=== PATIENT | male | born 1940 | race Caucasian/White ===

== ENCOUNTER 2017-12-21 21:50 | Observation (INO) | payer OTHER ==
[~2017-12-21] VITALS: Ht 172.7 cm; Wt 72.3 kg
[~2017-12-21 21:50] MED LIST: HYDROXYZINE HCL25 M2 PO; PREDNISONE20 M1 PO
--- NOTE | 2017-12-21 22:00 | ED CARDIAC/CP/PALPITATIONS ---
History of Present Illness General Chief Complaint: Chest Pain Stated Complaint: CP;SOB Source: patient, family, old records Exam Limitations: no limitations Vital Signs & Intake/Output Vital Signs & Intake/Output Vital Signs Date Time Temp Pulse Resp B/P B/P Pulse O2 O2 Flow FiO2 Mean Ox Delivery Rate 12/22 2227 99 Room Air 12/21 2226 98.0 70 20 170/68 99 Room Air 12/21 2158 97.9 67 18 186/85 98 Room Air Allergies Coded Allergies: morphine (Intermediate, HYPOTENSION & ANXIETY? 12/21/17) erythromycin base (Mild, RASH 12/21/17) penicillin V (Mild, RASH 12/21/17) Uncoded Allergies: ENDEP (Severe, MOUTH/LIP SWELLING 01/16/14) Reconcile Medications Hydroxyzine Hydrochloride (Atarax) 25 MG TABLET 1 TAB PO BID PRN ITCHINESS Prednisone 20 MG TABLET 2 TAB PO DAILY RASH Triage Nurses Notes Reviewed? yes HPI: At approximately 8 PM this evening the patient was sitting on the couch eating peanuts when he suddenly began to feel short of breath and had substernal chest pressure. There is no radiation. Patient went to lay down approximately 20 minutes later he still had the pain so thought his and eventually decided to come in for evaluation. Patient arrived to the emergency department pain free. Patient is unsure how long in total the pain actually lasted. Patient is currently asymptomatic. Patient states that when he did get up he checked his blood pressure and it was elevated. Patient does suffer from hypertension but tries to control it with diet and does not take any medications for it. At its worst the chest pain was 5 out of 10 and it is currently 0 out of 10. Past History Travel History Traveled to [place] past 21 day No Medical History Any Pertinent Medical History? see below for history Neurological: NONE EENT: NONE Cardiovascular: hypertension Respiratory: NONE Gastrointestinal: GERD Hepatic: NONE Renal: NONE Musculoskeletal: POLYMALAGIA REUMATICA CHRONIC BACK PAIN Psychiatric: NONE Endocrine: NONE Blood Disorders: NONE Cancer(s): NONE Surgical History Surgical History: non-contributory Psychosocial History Who do you live with Spouse What is your primary language Salvadorean Tobacco Use: Never used ETOH Use: denies use Illicit Drug Use: denies illicit drug use Family History Hx Contributory? No Review of Systems Review of Systems Constitutional: Reports: no symptoms. EENTM: Reports: no symptoms. Respiratory: Reports: see HPI, short of breath. Cardiovascular: Reports: see HPI, chest pain. GI: Reports: no symptoms. Genitourinary: Reports: no symptoms. Musculoskeletal: Reports: no symptoms. Skin: Reports: no symptoms. Neurological/Psychological: Reports: no symptoms. Hematologic/Endocrine: Reports: no symptoms. Immunologic/Allergic: Reports: no symptoms. All Other Systems: Reviewed and Negative Physical Exam Physical Exam General Appearance: well developed/nourished, alert, awake Head: atraumatic, normal appearance Eyes: Bilateral: PERRL, EOMI. Ears, Nose, Throat: normal pharynx, normal ENT inspection, hearing grossly normal Neck: normal inspection, supple, full range of motion Respiratory: normal breath sounds, chest non-tender, no respiratory distress, lungs clear Cardiovascular: regular rate/rhythm, normal peripheral pulses Gastrointestinal: normal bowel sounds, soft, non-tender, no organomegaly Back: normal inspection Extremities: normal inspection, normal capillary refill, normal range of motion, no edema Neurologic/Psych: no motor/sensory deficits, awake, alert, oriented x 3, normal gait, normal mood/affect Skin: intact, normal color, warm/dry Lymphatic: no anterior cervical nallely Core Measures ACS in differential dx? Yes No ASA d/t GIVEN CVA/TIA Diagnosis No Sepsis Present: No Sepsis Focused Exam Completed? No Progress Differential Diagnosis: AMI, cholecystitis, costochondritis, hyperventilation, musculoskeletal pain, myocarditis, pericarditis, pneumonia, pneumothorax, pulmonary embolism Plan of Care: Orders Procedure Date/time Status Telemetry/Dispatch Coordinator 12/21 2218 Active TROPONIN LEVEL 12/21 2158 Complete COMPREHENSIVE METABOLIC PANEL 12/21 2158 Complete CBC WITHOUT DIFFERENTIAL 12/21 2158 Complete EKG 12/21 2152 Active Laboratory Tests 12/21/17 2205: Anion Gap 10, Estimated GFR > 60, BUN/Creatinine Ratio 16.3, Glucose 115 H, Calcium 9.3, Total Bilirubin 0.8, AST 20, ALT 28, Alkaline Phosphatase 76, Troponin I 0.18 *H, Total Protein 7.5, Albumin 4.3, Globulin 3.2, Albumin/ Globulin Ratio 1.3, CBC w Diff NO MAN DIFF REQ, RBC 4.65 L, MCV 91.5, MCH 30.6, MCHC 33.4, RDW 13.8, MPV 8.3, Gran % 58.2, Lymphocytes % 24.8, Monocytes % 9.6 H, Eosinophils % 7.0 H, Basophils % 0.4, Absolute Granulocytes 5.9, Absolute Lymphocytes 2.5, Absolute Monocytes 1.0 H, Absolute Eosinophils 0.7, Absolute Basophils 0 Diagnostic Imaging: Viewed by Me: Radiology Read. Discussed w/RAD: Radiology Read. CXR Impression: PATIENT: ASHER DURAND PRESENT AGE: 77 PATIENT ACCOUNT NO: [id number] : 41 LOCATION: [facility] ORDERING PHYSICIAN: Gt Wayne MD SERVICE DATE: 12/21/17 EXAM TYPE: RAD - XRY- PORTABLE CHEST XRAY EXAMINATION: CHEST 1 VIEW CLINICAL INFORMATION: Chest pain. COMPARISON: 08/11/2007. TECHNIQUE: An AP view of the chest is provided. FINDINGS : The cardiac silhouette is not enlarged. The mediastinal and hilar contours are unremarkable. There are neither pleural effusions nor pneumothoraces. There are no consolidations. The osseous structures are unremarkable. IMPRESSION: No evidence for acute disease. DICTATED BY: Rashi Perry MD DATE/TIME DICTATED:2254 SECONDS GRADER:GEOVANNA DATE/TIME TRANSCRIBED:12/21/172254 CONFIDENTIAL, DO NOT COPY WITHOUT APPROPRIATE AUTHORIZATION. <Electronically signed in Other Vendor System> SIGNED BY: Rashi Perry MD 12/21/17 2376 Initial ED EKG: NSR, no ST T wave changes Prior EKG: unchanged Comments: D/W DR. GALARZA, PT TO BE KEPT IN TELE OBS. HE WILL CONSULT. Departure Departure Disposition: STILL A PATIENT Condition: Stable Clinical Impression Primary Impression: Chest pain Referrals: Cosme IRELAND,Abhishek (PCP/Family) Departure Forms: Customer Survey General Discharge Information Observation Note Spoke With: Erika Brink MD Physician Advisor Notified: GT WAYNE MD Place Patient In: Non-ED OBS Care Area Rationale for Observation: My rational for observation is as follows [telemetry monitoring, serial enzymes, cardiology consultation, heparin if chest pain comes back.]. Critical Care Note Critical Care Note Critical Care Time: non-applicable
[2017-12-21 22:30] LABS: ABSOLUTE BASOPHIL COUNT 0 /CUMM (0.0-0.2); ABSOLUTE EOSINOPHIL COUNT 0.7 /CUMM (0.0-0.7); ABSOLUTE GRANULOCYTE CT 5.9 /CUMM (1.4-6.5); ABSOLUTE LYMPH COUNT 2.5 /CUMM (1.2-3.4); BASOPHIL % 0.4 % (0.0-2.0); GRANULOCYTE % 58.2 % (42.2-75.2); HEMATOCRIT 42.5 % (42-52); MEAN CORPUSCULAR HGB 30.6 PG (27.0-31.0); MEAN CORPUSCULAR HGB CONC 33.4 G/DL (33.0-37.0); MEAN CORPUSCULAR VOLUME 91.5 FL (80.0-94.0); MEAN PLATELET VOLUME 8.3 FL (7.4-10.4); PLATELET COUNT 322 /CUMM (130-400); RBC DISTRIBUTION WIDTH 13.8 % (11.5-14.5); RED BLOOD CELL CT 4.65 /CUMM (4.70-6.10); WHITE BLOOD CELL COUNT 10.2 /CUMM (4.8-10.8)
--- NOTE | 2017-12-21 23:01 | RADIOLOGY REPORT ---
EXAMINATION: CHEST 1 VIEW CLINICAL INFORMATION: Chest pain. COMPARISON: 08/11/2007. TECHNIQUE: An AP view of the chest is provided. FINDINGS: The cardiac silhouette is not enlarged. The mediastinal and hilar contours are unremarkable. There are neither pleural effusions nor pneumothoraces. There are no consolidations. The osseous structures are unremarkable. IMPRESSION: No evidence for acute disease.
--- NOTE | 2017-12-21 23:48 | History & Physical ---
Greg Barboza MD 12/21/17 6356: General Information and HPI MD Statement: I have seen and personally examined ASHER DURAND and documented this H&P. The patient is a 77 year old M who presented with a patient stated chief complaint of chest pain. Source of Information: patient, old records Exam Limitations: poor historian History of Present Illness: 77 year old male with past medical history significant for hypertension, hypothyroidism, hyperlipidemia, diabetes, polymyalgia rheumatica, and GERD presented with acute onset chest pain. The patient states that he was in his usual state of health, sitting at home, when he suddenly developed frontal chest pain. The pain was 2/10 in severity, and described it as a pressure like sensation. He thinks it was radiating towards his back near his neck although he says he has chronic neck pain, he thinks they were one pain originating in the chest. The patient's chest pain was reportedly associated with palpitations and shortness of breath. The episode of chest pain was transient last only a few minutes. He did not endorse that it was aggravated by eating, position, or exertion. It was not pleuritic in nature nor tender to palpation. The patient has trouble describing how he felt unwell besides chest pain with palpitations and dyspnea. He says he decided to lay otf to rest. His checked his blood pressures several times over the next hour which was labile but persistently elevated and insisted on bringing him into the emergency department for evaluation. The patient states he never has had chest pain like this before. He states his exercise capacity is limited by dyspnea, doesn't climb stairs nor walk for prolonged periods and largely is sedentary but denies ever experiencing exertional chest pain. He was previously evaluated by Dr. Elaine in 2009 for chest pain. 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 Avendano in [place] according to Dr. Elaine note in 2009 who recommended a stress test but patient can not recall having this performed. In the ED, his first troponin was positive although his EKG did not show any acute ischemic changes and his chest pain had resolved prior to arrival. He was given 325mg of aspirin and admitted to telemetry for further evaluation and treatment. Allergies/Medications Compliance With Home Meds: GOOD Past History Travel History Traveled to [place] past 21 day No Medical History Neurological: NONE EENT: NONE Cardiovascular: hypertension Respiratory: NONE Gastrointestinal: GERD Hepatic: NONE Renal: NONE Musculoskeletal: POLYMALAGIA REUMATICA CHRONIC BACK PAIN Psychiatric: NONE Endocrine: NONE Blood Disorders: NONE Cancer(s): NONE Surgical History Surgical History: hernia repair-inguinal Past Family/Social History Family History Relations & Conditions if any FATHER FH: myocardial infarction, Onset: 60+. MOTHER FH: hypertension SISTER FH: myocardial infarction FH: stroke Psychosocial History Smoking Status: Never Smoked ETOH Use: denies use Illicit Drug Use: denies illicit drug use Functional Ability ADLs Independent: dressing, eating, toileting, bathing. Ambulation: independent Review of Systems Review of Systems Constitutional: Denies: chills, diaphoresis, fever, malaise, weakness. EENTM: Reports: no symptoms. Cardiovascular: Reports: chest pain, palpitations. Denies: peripheral edema, syncope. Respiratory: Reports: short of breath. Denies: cough, hemoptysis, orthopnea, sputum production. GI: Reports: no symptoms. Genitourinary: Reports: no symptoms. Musculoskeletal: Reports: back pain, neck pain. Skin: Reports: no symptoms. Neurological/Psychological: Reports: no symptoms. Hematologic/Endocrine: Reports: no symptoms. Exam & Diagnostic Data Last 24 Hrs of Vital Signs/I&O Vital Signs Date Time Temp Pulse Resp B/P B/P Pulse O2 O2 Flow FiO2 Mean Ox Delivery Rate 12/22 2227 99 Room Air 12/21 2226 98.0 70 20 170/68 99 Room Air 12/21 2159 97.9 67 18 186/85 98 Room Air Intake & Output 12/22 0800 04/ 0000 12/21 1600 Intake Total Output Total Balance Patient 90.804 kg 88.451 kg Weight Weight Bed scale Measurement Method Physical Exam General Appearance Alert, Oriented X3, Cooperative, No Acute Distress Neck Supple, No JVD Cardiovascular Regular Rate, Normal S1, Normal S2, systolic murmur 1/6 Lungs left basilar crackles Abdomen Normal Bowel Sounds, Soft, No Tenderness, No Masses Extremities No Clubbing, No Cyanosis, Normal Pulses, trace LE edema Last 24 Hrs of Labs/Carlos: Laboratory Tests 12/21/175: Anion Gap 10, Estimated GFR > 60, BUN/Creatinine Ratio 16.3, Glucose 115 H, Hemoglobin A1c Pending, Calcium 9.3, Total Bilirubin 0.8, AST 20, ALT 28, Alkaline Phosphatase 76, Troponin I 0.18 *H, Total Protein 7.5, Albumin 4.3, Globulin 3.2, Albumin/Globulin Ratio 1.3, TSH Pending, CBC w Diff NO MAN DIFF REQ, RBC 4.65 L, MCV 91.5, MCH 30.6, MCHC 33.4, RDW 13.8, MPV 8.3, Gran % 58.2, Lymphocytes % 24.8, Monocytes % 9.6 H, Eosinophils % 7.0 H, Basophils % 0.4, Absolute Granulocytes 5.9, Absolute Lymphocytes 2.5, Absolute Monocytes 1.0 H, Absolute Eosinophils 0.7, Absolute Basophils 0 Diagnostic Data EKG Results sinus rhythm HR [address] segment changes CXR Results The cardiac silhouette is not enlarged. The mediastinal and hilar contours are unremarkable. There are neither pleural effusions nor pneumothoraces. There are no consolidations. The osseous structures are unremarkable. Other Results echo 2008 minimal aortic sclerosis, no AR/, minimal dilation of aortic root, thickened MV, borderline posterior leaflet systolic prolapse, mild MR, mild left atrial dilatation, physiological left ventricular false tendons were present, mild lipomatous atrial septal hypertrophy, normal right heart chamber size, moderate TR without pulmonary hypertension, mild pulmonic insufficiency CHEST CTA Ascending aorta dilatation measuring 4.3 cm. No aortic dissection. No acute change of the chest. Assessment/Plan Assessment: 77 year old male with past medical history significant for hypertension, hypothyroidism, hyperlipidemia, diabetes, polymyalgia rheumatica, and GERD presented with acute onset chest pain. Chest pain: Atypical, non exertional, radiating towards the back, aortic root dilatation on old echo CTA chest negative for aortic dissection First troponin elevated to 0.18 Likely Type II NSTEMI, with no significant ischemic EKG changes Serial troponins and EKGs to evaluate for myocardial ischemia Monitor on telemetry for arrhythmia Cardiology consultation with Dr. Elaine Will probably need an outpatient stress test Start aspirin and statin therapy Initiate low dose beta clinton with metoprolol or carvedilol ECHO 2008 LVEF wnl, no AR/, minimal dilation of aortic root, thickened MV with mild MR, mild left atrial dilatation, normal right heart chamber size, moderate TR without pulmonary hypertension, mild pulmonic insufficiency HTN: Not on medications at home Start beta clinton HLD: Check lipid panel Start statin therapy History of hypothyroidism: Stopped synthroid on his own TSH was normal in 2013 Repeat TSH DM: Check hemoglobin A1C If elevated, started accuchecks and short acting insulin and change to diabetic diet Heart healthy diet DVT ppx-lovenox 40mg subcutaneous daily Full code As Ranked By This Provider Problem List: 1. Chest pain Core Measures/Misc (06/07) Acute Coronary Syndrome ACS Diagnosis: No Congestive Heart Failure Congestive Heart Failure Diagnosis No Cerebrovascular Accident CVA/TIA Diagnosis: No VTE (View Protocol) VTE Risk Factors Age>40 No Mechanical VTE Prophylaxis d/t N/A MechProphylax Ordered No VTE Pharm Prophylaxis d/t NA PharmProphylax ordered Sepsis (View protocol) Sepsis Present: No Danilo IRELAND,Ismail 12/22/17 0219: General Information and HPI Allergies/Medications Allergies: Coded Allergies: amitriptyline (Severe, ENDEP-> MOUTH/LIP SWELLING 12/22/17) morphine (Intermediate, HYPOTENSION & ANXIETY? 12/21/17) erythromycin base (Mild, RASH 12/21/17) penicillin V (Mild, RASH 12/21/17) Resident Review Statement Resident Statement: examined this patient, discussed with corporate communications intern, agreed with corporate communications intern, discussed with family, discussed with nursing Other Findings: 77-year-old male with a past medical history significant for diabetes mellitus, hypothyroidism, hypertension, hyperlipidemia, polymyalgia rheumatica, and GERD who presented with a chief complaint of chest pain. The patient reported 2/10, pressure-like, bilateral ulnar chest pain that lasted for few minutes. Pain was radiated to the base of the neck posteriorly, although he said he has a chronic neck pain. His pain was associated with dyspnea and palpitation and was not affected by breathing, change in position, or touch. 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 Patient stopped all his medication a while ago and is only self-medicating with natural supplements. On admission: BP 186/85, HR 67, Temp 98, and saturating 99 on room air. Vitals were Significant labs: Glucose 1:15 and troponin 0.18. X-ray showed no evidence of acute disease, personally reviewed x-ray showed trachea deviated to the right side and widening mediastinum. CTA Ascending aorta dilatation measuring 4.3 cm. No aortic dissection. No acute change of the chest. Physical Exam HEENT - PERRLA, EOMI CVS - Nl S1,S2 w/o m/g/r RESP - CTA BL with mild crackles in the left lower lobe GI - Soft, NT/ND without organomegaly Extremities-No edema or cyanosis Assessment: 77-year-old male with a history of hypertension, hyperlipidemia, hypothyroidism, and diabetes, however he is not currently taking any medication and only self- medicating with natural supplements. On admission he was found to have mildly elevated troponin and hypertension. #NSTENI * Monitor in telemetry * Serial troponin and EKG * Echocardiogram * We will start aspirin, statin, low-dose metoprolol * Cardiology consult #HTN,HDL,DM, hypothyroidism not currently in any medication * Diabetic diet * Fingerstick glucose level * Insulin SS * Hemoglobin A1c * TSH -Diabetic diet -DVT prophylaxis with subcutaneous heparin -Full code KeenaJuanitanoemy 12/22/17 0429: Attending MD Review Statement Attending Statement Attending MD Statement: examined this patient, discuss w/resident/PA/BEAM DYER, agreed w/resident/PA/BEAM DYER, reviewed EMR data (avail), reviewed images, amended to note Attending Assessment/Plan: CC: Chest pain PMH: DM, HTN, hypothyroidism : Noncompliant with medications Patient came to ER for chest pressure that started 8 PM at rest, pressure-like, all over the chest, nonradiating, associated with shortness of breath and palpitations, lasted for a few minutes and then resolved on its own but he kept feeling uneasy for more than an hour. His checked his blood pressure every 15 minutes and it was persistently high so she insisted that he should go to ER. Patient had similar episode of chest pain 10 years back when he was admitted in this hospital and was diagnosed to have diabetes, hypertension, hypothyroidism but patient has been noncompliant with any of his medications. Even though he sees primary care physician every now and then he refuses to take any medications. He believes that he gets side effects from all this medication and blood pressure medication will do more harm then benefit. Vitals: Afebrile, pulse 70, RR 18, blood pressure 186/85, saturating 98% on room air. On exam: A O 3, cooperative, no acute distress, neck supple, JVD normal, no lymphadenopathy, mucosa moist, no focal neurological deficit, no dependent edema , no obvious skin rashes or inflammation CVS: S1-S2, RRR, ?2/6 diastolic murmur in aortic area. RS: Clear to auscultate bilaterally. Abdomen: Soft, obese, NT, ND, bowel sounds present. CXR: No evidence for acute disease. CTA chest: Ascending aorta dilatation measuring 4.3 cm. No aortic dissection. No acute change of the chest. Assessment and plan 77-year-old male with past medical history significant for HTN, DM, hypothyroidism, noncompliant with medication presented in ER for a brief episode of chest pain for a few minutes followed by feeling uneasy for 1 hour. He check blood pressure at home which was elevated. His insisted to come to ER. Patient states that he does not believe in taking any medications and has been all right since last many years of not taking medications. Chest pain was all over the chest, nonradiating, occurred at rest, relieved without treatment. Patient has 2/6 diastolic murmur in aortic area, otherwise exam unremarkable. ECG showed normal sinus rhythm but troponin is elevated to 0.18. Previous record mentions that he has dilatation of aortic root. In the setting of diastolic murmur, atypical chest pain, and history of aortic root dilatation CTA was obtained which was unremarkable for dsection. Patient has accelerated blood pressure, and would benefit from observation on telemetry to rule out ACS. Patient states that even after discharge he is not going to take any medications as he does not believe in medications. According to him medications has more side effects than benefits. + Chest pain with elevated troponin: NSTEMI. NO ecg changes. currently pain free. + Accelerated HTN : non compliance + History of DM, hypothyroidism: noncompliant with treatment - Place in observation on telemetry - Continuous telemetry monitoring - Serial troponin and EKGs - 2-D echo in a.m. - Cardiology consult in a.m. - Continue aspirin, atorvastatin, low-dose beta clinton - Start heparin drip if troponin trending up - HbA1c, TSH - Accu-Cheks, sliding scale insulin
--- NOTE | 2017-12-22 02:29 | CT SCAN REPORT ---
EXAMINATION: CT ANGIOGRAM CHEST, AORTIC STUDY. CLINICAL INFORMATION: Chest pain. The pain radiates to the back. Concern for aortic dissection. COMPARISON: Portable chest December 21, 2017 TECHNIQUE: A noncontrast axial images obtained through chest. A noncontrast localizer was performed, followed by the administration of 94 mL Optiray [address] of the chest was then performed. Coronal and sagittal reformatted were completed at the CT scanner and reviewed on the PACS workstation. No adverse effects were reported. No 3-D imaging performed. Axial MIP reformatted sequence was performed at the CT scanner. DLP: 703.49 mGy-cm. FINDINGS: VASCULAR: The ascending aorta is dilated, measuring 4.3 cm transverse. The aortic arch measures 3.2 cm transverse. The descending aorta at the aortic hiatus measures 2.6 cm. There is no aortic dissection. There are a few vascular wall calcifications of the aortic wall at the arch and descending aorta. There is coronary artery calcifications present. There is normal variant of a 2 vessel aortic arch. There is normal enhancement of the great vessels. There is good enhancement also of the pulmonary arteries with no evidence of pulmonary embolism MEDIASTINUM: No mediastinal mass. No lymphadenopathy. No fluid collection or hematoma. LUNGS: There are a couple small lung cysts at the right lung base which are thin-walled. There is a thin-walled lung cyst also adjacent to the left hilum the left upper lobe. No acute abnormality. There is no infiltrate. No interstitial or reticular opacity. There is no bronchiectasis. The central bronchial airways are open. FLUID: There is no pericardial effusion. There is no pleural effusion. AXILLA: No significant lymphadenopathy. UPPER ABDOMEN: Adrenal glands normal. Visualized portions of liver and spleen unremarkable. SKELETAL: No suspicious focal bone finding. IMPRESSION: Ascending aorta dilatation measuring 4.3 cm. No aortic dissection. No acute change of the chest.
[2017-12-22 02:30] VITALS: BP 152/88
[2017-12-22 06:49] VITALS: BP 144/82
--- NOTE | 2017-12-22 07:21 | PN-Observation ---
Juan Jose Thornton MD,[facility] 12/22/17 0721: Observation Note Observation Note _ I have personally examined ASHER DURAND. him disposition is uncertain at this time. Before a determination can be made, he requires continued observation for the following reasons [chest pain rule out ACS]. Assessment/Plan Medical Assessment: 77-year-old male with past medical history significant for hypertension, hypothyroidism, loa-gnibsqa-tpdtzujib diabetes mellitus, hyperlipidemia, polymyalgia rheumatica, noncompliant with medications and GERD presented with acute onset chest pain. Patient describes chest pain is pressure-like sensation, radiating to back near his neck, 2/10 in intensity, associated with shortness of breath and palpitations. Patient was also seen in 2008 for chest pain and was recommended to have a stress test. Patient does not remember having the stress test done. Patient also has history of uncontrolled blood pressures at home. On examination noted to have diastolic murmur. EKG on admission showed normal sinus rhythm with a positive troponin of 0.18. He also has history of aortic root dilatation. CTA was obtained to rule out dissection. Overnight patient remained chest pain-free. Telemetry monitoring showed no significant arrythmias Chest pain rule out ACS Patient's presentation is typical for an anginal attack. Likelihood of having any any acute coronary event is low to moderate based on no CAD at baseline, but on examination patient does have diastolic murmur which puts him at a high risk, no signs of congestive heart failure, no acute EKG changes, and positive troponins trending down. Heart score, 6 points Moderate Score (4-6 points) Risk of MACE of 12-16.6%. MIGUEL score 3 points, 13% risk at 14 days of: all- cause mortality, new or recurrent [place], or severe recurrent ischemia requiring urgent revascularization. - Hemodynamically stable - Admit to telemetry - Vitals q Shift - Watch for arrhythmias on telemetry floor, Including ventricle tachycardia and blocks - Cardio consult - Consider repeat ECHO - Lipid panel added onto the morning labs - ASA 81mg daily - No history of cocaine use as a young adult - Continue Sublingual nitrates, B-clinton, statins and ASA - IV heparin - Give dinner (Heart Healthy Diet Hypothyroidism Patient has past medical history significant for hypothyroidism and currently not compliant with medications. High TSH noted. We will staff counselor the patient and start him on appropriate medications. Ascending aorta dilatation Ascending aorta dilatation measuring 4.3 cm. Non-smoker, will require regular follow up Patient is on heart healthy diet Patient is on pain management Patient is on subcutaneous heparin for DVT prophylaxis Problem List: 1. Chest pain DVT/Prophylaxis: pharmacological Consulting Request: Consulting Specialty: Cardiology Subjective Follow-up For: Chest pain rule out ACS Subjective: Patient demand afebrile overnight. No episodes of tachycardia or tachypnea. Systolic blood pressure has improved from 186-144 and diastolic in 80s. Oxygen saturation of 98% to 99% on room air. Review of Systems Constitutional: Denies: chills, fever. Cardiovascular: Denies: chest pain, palpitations. Respiratory: Denies: cough, short of breath. Gastrointestinal: Denies: abdominal pain, nausea, vomiting. Genitourinary: Denies: dysuria. Objective Last 24 Hrs of Vital Signs/I&O Vital Signs Date Time Temp Pulse Resp B/P B/P Pulse O2 O2 Flow FiO2 Mean Ox Delivery Rate 12/22 0649 98.1 66 20 144/82 98 Room Air 12/22 0230 98.2 66 20 152/88 98 Room Air 12/21 2228 99 Room Air 12/21 2227 98.0 70 20 170/68 99 Room Air 12/21 2159 97.9 67 18 186/85 98 Room Air Intake & Output 12/22 1600 12/22 0800 12/22 0000 Intake Total 240 Output Total Balance 240 Intake, Oral 240 Patient 200 lb 195 lb Weight Weight Bed scale Measurement Method Physical Exam General Appearance: Alert, Oriented X3, Cooperative, No Acute Distress Skin: No Rashes HEENT: Atraumatic Neck: No JVD Cardiovascular: Regular Rate, Normal S1, Normal S2, diastolic murmur in aortic area Lungs: Clear to Auscultation, Normal Air Movement Abdomen: Normal Bowel Sounds, Soft, No Tenderness Extremities: No Edema Vascular: Normal Pulses Current Medications: Current Medications Sig/Pauline Start time Last Medication Dose Route Stop Time Status Admin Aspirin 81 MG DAILY 12/22 1000 AC PO Aspirin 0 .STK-MED ONE 12/210 DC PO Aspirin 325 MG ONCE ONE 12/210 DC 12/21 PO 12/21 223 2236 Atorvastatin Calcium 80 MG 1700 12/22 1700 AC PO Heparin Sodium 5,000 UNIT Q8 12/22 0600 AC 12/22 (Porcine) SC 0535 Metoprolol Tartrate 25 MG BID 12/22 1000 AC PO Last 24 Hrs of Labs/Mics: Laboratory Tests 12/22/17 0420: Troponin I 0.15 *H 12/22/17 0420: Anion Gap 11, Estimated GFR > 60, BUN/Creatinine Ratio 18.6, Triglycerides Pending, Cholesterol Pending, LDL Cholesterol, Calc Pending, HDL Cholesterol Pending, Cholesterol/HDL Ratio Pending 12/21/17 2205: Anion Gap 10, Estimated GFR > 60, BUN/Creatinine Ratio 16.3, Glucose 115 H, Hemoglobin A1c Pending, Calcium 9.3, Total Bilirubin 0.8, AST 20, ALT 28, Alkaline Phosphatase 76, Troponin I 0.18 *H, Total Protein 7.5, Albumin 4.3, Globulin 3.2, Albumin/Globulin Ratio 1.3, TSH 8.050 H, Free T4 1.05, Total T3 1.29, CBC w Diff NO MAN DIFF REQ, RBC 4.65 L, MCV 91.5, MCH 30.6, MCHC 33.4, RDW 13.8, MPV 8.3, Gran % 58.2, Lymphocytes % 24.8, Monocytes % 9.6 H, Eosinophils % 7.0 H, Basophils % 0.4, Absolute Granulocytes 5.9, Absolute Lymphocytes 2.5, Absolute Monocytes 1.0 H, Absolute Eosinophils 0.7, Absolute Basophils 0 Ric Drew 12/22/17 1043: Attending Addendum Attending Brief Note 77 o/m with chest pain in high risk patient with elevated cardiac enzymes. No fever, headaches. Patient started on asa/statin/b clinton/ nitrates prn and consult cardiology. Start anticoaogualtion and f/u cardiology. Plan for cardiac cath as per cardiology. RISS and titrate insulin as needed. Gi/dvt prophyalxis full code.
[2017-12-22 10:43] VITALS: BP 160/88
[2017-12-22 14:30] VITALS: BP 128/82
--- NOTE | 2017-12-22 16:56 | Discharge Summary ---
Visit Information Visit Dates Admission Date: 12/21/17 Discharge Date: 12/23/17 Hospital Course Course Attending Physician: Ric Drew MD Primary Care Physician: Cosme IRELAND,Abhishek Consulting Request: Consulting Specialty: Cardiology Hospital Course: 77-year-old male with past medical history significant for hypertension, hypothyroidism, xes-fcbuzbf-qwzypaozu diabetes mellitus, hyperlipidemia, polymyalgia rheumatica, noncompliant with medications and GERD presented with acute onset chest pain. Patient describes chest pain is pressure-like sensation, radiating to back near his neck, 2/10 in intensity, associated with shortness of breath and palpitations. Patient was also seen in 2008 for chest pain and was recommended to have a stress test. Patient does not remember having the stress test done. Patient also has history of uncontrolled blood pressures at home. On examination noted to have diastolic murmur. EKG on admission showed normal sinus rhythm with a positive troponin of 0.18. He also has history of aortic root dilatation. CTA was obtained to rule out dissection. Overnight patient remained chest pain-free. Telemetry monitoring showed no significant arrythmias Chest pain rule out ACS Patient's presentation was typical for an anginal attack. Likelihood of having any any acute coronary event was low to moderate based on no CAD at baseline, but on examination patient did have diastolic murmur which puts him at a higher risk, no signs of congestive heart failure, no acute EKG changes, and positive troponins trending down. Heart score, 6 points Moderate Score (4-6 points). Risk of MACE of 12-16.6%. MIGUEL score 3 points, 13% risk at 14 days of: all- cause mortality, new or recurrent [place], or severe recurrent ischemia requiring urgent revascularization. Watch for arrhythmias on telemetry floor, Including ventricle tachycardia and blocks. Cardio consult was obtained. ECHO was obtained. Echo showed jection fraction is greater than 55-60%. There appears to be focal hypokinesia of the mid interventricular septum. A false tendon and increased muscular trabecularity are present at the left ventricular apex.No prior study was available for comparison. Lipid panel showed 135 LDL. ASA 81mg daily, statin and beta-clinton was given. Patient had no history of cocaine use as a young adult. Hypothyroidism Patient has past medical history significant for hypothyroidism and currently not compliant with medications. High TSH noted. Patient was counseled to follow up with primary care doctor for hypothyroidism after cardiac catheterization. Ascending aorta dilatation Ascending aorta dilatation measuring 4.3 cm. No evidence of dissection on CT scan. Non-smoker, will require regular follow up with cardiology. Patient is on heart healthy diet Patient is on pain management Patient is on subcutaneous heparin for DVT prophylaxis Allergies: Coded Allergies: amitriptyline (Severe, ENDEP-> MOUTH/LIP SWELLING 12/22/17) morphine (Intermediate, HYPOTENSION & ANXIETY? 12/21/17) erythromycin base (Mild, RASH 12/21/17) penicillin V (Mild, RASH 12/21/17) Disposition Summary Disposition Principal Diagnosis: Chest pain rule out ACS Hypothyroidism Ascending aorta dilatation Additional Diagnosis: Hypertension Pre-diabetes Hyperlipidemia Polymyalgia rheumatica Discharge Disposition: other general hospital Discharge Instructions General Discharge Information Code Status: Full Code Patient's Diet: Heart Healthy Diet Patient's Activity: As Tolerated Follow-Up Instructions/Appts: Follow up with PCP after discharge Follow up with Balance Assembler after discharge Medications at Discharge Discharge Medications: Stop taking the following medications: Hydroxyzine Hydrochloride (Atarax) 25 MG TABLET ORAL TWICE DAILY as needed for ITCHINESS Qty = 20 Prednisone (Prednisone) 20 MG TABLET ORAL DAILY Qty = 6 Start taking the following new medications: Atorvastatin Calcium (Atorvastatin Calcium) 80 MG TABLET 80 Milligram ORAL 5 PM Qty = 90 No Refills Comments: Last Taken: 12/22/17 Time: 6:30 PM Metoprolol Tartrate (Metoprolol Tartrate) 25 MG TABLET 25 Milligram ORAL TWICE DAILY Qty = 120 No Refills Comments: Last Taken: 12/23/17 Time: 9:00 AM Aspirin (Aspirin*) 81 MG TAB.CHEW 81 Milligram ORAL DAILY Qty = 90 No Refills Comments: Last Taken: 12/23/17 Time: 9:00 AM Copies To: Cosme IRELAND,Abhishek Attending MD Review Statement Documenting Attending: Ric Drew MD
--- NOTE | 2017-12-22 17:07 | Patient Discharge Instructions ---
Discharge Instructions General Discharge Information You were seen/treated for: NSTEMI CP R/O ACS Special Instructions: Follow up with Cycle Manager after discharge Follow up with PCP after discharge Diet Continue normal diet: Yes Recommended Diet: Heart Healthy Activity Full Activity/No Limits: Yes Acute Coronary Syndrome Inclusion Criteria At DC or during hospital stay patient has or had the following: ACS DIAGNOSIS Yes Discharge Core Measures Meds if any: Prescribed or Continued at Discharge Aspirin Yes Beta-Juliann Yes Statin Yes Meds if any: NOT Prescribed or Continued at Discharge Congestive Heart Failure Inclusion Criteria At DC or during hospital stay patient has or had the following: CHF DIAGNOSIS No Discharge Core Measures Meds if any: Prescribed or Continued at Discharge Meds if any: NOT Prescribed or Continued at Discharge Cerebrovascular accident Inclusion Criteria At DC or during hospital stay patient has or had the following: CVA/TIA Diagnosis No Discharge Core Measures Meds if any: Prescribed or Continued at Discharge Meds if any: NOT Prescribed or Continued at Discharge Venous thromboembolism Inclusion Criteria VTE Diagnosis No VTE Type NONE VTE Confirmed by (Test) NONE Discharge Core Measures - Per Current guidelines, there needs to be overlap - treatment for the first 5 days of Warfarin therapy. - If discharged on Warfarin prior to 5 days of - overlap therapy, the patient will need to be - assessed for post discharge needs including - *Post discharge parental anticoagulation - *Warfarin and/or parental anticoagulation education - *Follow up date to check INR post discharge At least 5 days overlap therapy as Inpatient No Meds if any: Prescribed or Continued at Discharge Note: Overlap Therapy is Warfarin and Anticoagulant Meds if any: NOT Prescribed or Continued at Discharge
[2017-12-22] MEDS ORDERED: ATORVASTATIN CA80 M1 PO (17:10)
[2017-12-22] MEDS ORDERED: METOPROLOL TART25 M1 PO (17:10)
[2017-12-22] MEDS ORDERED: ASPIRIN81 M4 PO (17:10)
--- NOTE | 2017-12-22 19:54 | ECHOCARDIOGRAM REPORT ---
ASHER DURAND Age: 77 : 1940 Gender: M Exam Date: 12/22/2017 11:04 Exam Location: [address] Ht (in): 68 Wt (lb): 200 BSA: 2.11 BP: 144 / 82 Ordering Physician: Almaz Carrasco MD Referring Physician: Almaz Carrasco MD Technologist: Jamison Niño [facility] Room Number: 174-1 Indications: Chest Pain Rhythm: Sinus Technical Quality: Fair FINDINGS Left Ventricle Normal size left ventricle. Normal left ventricular ejection fraction estimated at 55-60%. Hypokinetic septum. Right Ventricle Normal right ventricular size and function. Right Atrium Normal right atrial size. Left Atrium Mild left atrial dilatation. Mitral Valve Mitral valve thickened. Trace to mild mitral regurgitation. Aortic Valve Trileaflet aortic valve. Diffuse thickening (sclerosis) of the aortic valve cusps without reduced excursion. No aortic stenosis. Trace aortic regurgitation. Tricuspid Valve Tricuspid valve not well visualized, grossly normal. Trace to mild tricuspid regurgitation. Pulmonic Valve Structurally normal pulmonic valve. Trace to mild pulmonic regurgitation. Pericardium No pericardial effusion. Great Vessels Mildly dilated proximal ascending aorta (tube). CONCLUSIONS 1. This was a technically difficult study 2. Mild aortic sclerosis is present with trivial aortic insufficiency and mild enlargement of the descending aorta 3. mitral leaflet thickening is present with minimal mitral insufficiency and mild left atrial enlargement. 4. There is no sitting up in pericardial fluid detected on this study 5. The left ventricular chamber size is normal. The ejection fraction is greater than 55-60%. There appears to be focal hypokinesia of the mid interventricular septum 6. Right heart structures are grossly normal. Minimal to mild tricuspid and pulmonic insufficiency are present with no evidence of pulmonary hypertension. 7. No prior study was available for comparison. 8. A false tendon and increased muscular trabecularity are present at the left ventricular apex Rudolph Elaine M.D. (Electronically Signed) Final Date: 22 December 2017 19:53 MEASUREMENTS (Male / Female) Normal Values 2D ECHO LV Diastolic Diameter PLAX 4.4 cm 4.2 - 5.9 / 3.9 - 5.3 cm LV Systolic Diameter PLAX 2.4 cm 2.1 - 4.0 cm LV Fractional Shortening PLAX 45.5 % 25 - 46 % LV Ejection Fraction 2D Teich 77.0 % IVS Diastolic Thickness 1.1 cm LVPW Diastolic Thickness 1.0 cm LV Relative Wall Thickness 0.5 RV Internal Dim ED PLAX 3.3 cm 1.9 - 3.8 cm LVOT Diameter 2.0 cm Aortic Root Diameter 3.5 cm LA Systolic Diameter LX 4.0 cm 3.0 - 4.0 / 2.7 - 3.8 cm LA Volume 35.0 cm 18 - 58 / 22 - 52 cm Ascending Aorta Diameter 4.0 cm DOPPLER AV Peak Velocity 146.0 cm/s AV Peak Gradient 8.5 mmHg AV Mean Velocity 106.0 cm/s AV Mean Gradient 5.0 mmHg AV Velocity Time Integral 33.5 cm LVOT Peak Velocity 99.3 cm/s LVOT Peak Gradient 3.9 mmHg LVOT Mean Velocity 63.8 cm/s LVOT Mean Gradient 2.0 mmHg LVOT Velocity Time Integral 24.1 cm LVOT Stroke Volume 75.7 cm AV Area Cont Eq vti 2.3 cm AV Area Cont Eq pk 2.1 cm MV Peak Velocity 117.0 cm/s MV Peak Gradient 5.5 mmHg MV Mean Velocity 60.9 cm/s MV Mean Gradient 2.0 mmHg Mitral E Point Velocity 74.0 cm/s Mitral A Point Velocity 89.3 cm/s Mitral E to A Ratio 0.8 MV PHT Velocity 84.2 cm/s MV Deceleration [place] 220.0 cm/s MV Pressure Half Time 114.8 ms MV Area PHT 1.9 cm MV Deceleration Time 232.0 ms TR Peak Velocity 240.0 cm/s TR Peak Gradient 23.0 mmHg Right Atrial Pressure 10.0 mmHg Pulmonary Artery Systolic Pressu 33.0 mmHg Right Ventricular Systolic Press 33.0 mmHg PV Peak Velocity 85.5 cm/s PV Peak Gradient 2.9 mmHg PV Mean Velocity 59.5 cm/s PV Mean Gradient 2.0 mmHg PV Velocity Time Integral 21.1 cm
[2017-12-22 23:50] VITALS: BP 142/76
[2017-12-23 06:36] VITALS: BP 118/70
--- NOTE | 2017-12-23 07:39 | PN-Observation ---
Juan Jose Thornton MD,[facility] 12/23/17 0739: Observation Note Observation Note _ I have personally examined ASHER DURAND. him disposition is uncertain at this time. Before a determination can be made, he requires continued observation for the following reasons [CP R/O ACS]. Assessment/Plan Medical Assessment: 77-year-old male with past medical history significant for hypertension, hypothyroidism, xzw-pfsywyn-qcsnvdnxf diabetes mellitus, hyperlipidemia, polymyalgia rheumatica, noncompliant with medications and GERD presented with acute onset chest pain. Patient describes chest pain is pressure-like sensation, radiating to back near his neck, 2/10 in intensity, associated with shortness of breath and palpitations. Patient was also seen in 2008 for chest pain and was recommended to have a stress test. Patient does not remember having the stress test done. Patient also has history of uncontrolled blood pressures at home. On examination noted to have diastolic murmur. EKG on admission showed normal sinus rhythm with a positive troponin of 0.18. He also has history of aortic root dilatation. CTA was obtained to rule out dissection. Overnight patient remained chest pain-free. Telemetry monitoring showed no significant arrythmias, some evidence of sinus bradycardia with the lowest heart rate of 47. Chest pain rule out ACS/NSTEMI Patient's presentation is typical for an anginal attack. Likelihood of having any any acute coronary event is low to moderate based on no CAD at baseline, but on examination patient does have diastolic murmur which puts him at a high risk, no signs of congestive heart failure, no acute EKG changes, and positive troponins trending down. Heart score, 6 points Moderate Score (4-6 points) Risk of MACE of 12-16.6%. MIGUEL score 3 points, 13% risk at 14 days of: all- cause mortality, new or recurrent [place], or severe recurrent ischemia requiring urgent revascularization. Patient will be transferred to [facility] for cardiac catheterization today. - Hemodynamically stable - Admit to telemetry - Vitals q Shift - Watch for arrhythmias on telemetry floor, Including ventricle tachycardia and blocks - Cardio consult - ECHO results pending - Lipid panel showed LDL of 135, rest of the profile is normal - ASA 81mg daily - No history of cocaine use as a young adult - Continue Sublingual nitrates as needed, B-clinton, statins and ASA scheduled Hypothyroidism Patient has past medical history significant for hypothyroidism and currently not compliant with medications. High TSH noted. Patient was counseled to follow up with primary care doctor for hypothyroidism after cardiac catheterization. Ascending aorta dilatation Ascending aorta dilatation measuring 4.3 cm. Non-smoker, will require regular follow up with veneer drier Patient is currently nothing by mouth pending cardiac catheterization Patient is on pain management Patient is on subcutaneous heparin for DVT prophylaxis Problem List: 1. Chest pain Consulting Request: Consulting Specialty: Cardiology Discharge Plan Discharge Disposition: transfer to another hosp If Discharged Today/In 24 Hrs: W-10/discharge paper done, DC summary done, CMR done Subjective Follow-up For: Chest pain rule out ACS n Positive troponin without EKG changes Complaints: no complaints Tele-Events Since Last Visit: Telemetry monitoring showed no significant arrythmias, some evidence of sinus bradycardia with the lowest heart rate of 47. Subjective: Patient remained pain-free overnight. He did not develop any palpitations, lightheadedness, dizziness, shortness of breath, chest pressure or diaphoresis overnight. He remained afebrile. No tachycardia, no episodes of hypotension, oxygen saturation 96-99% on room air. Review of Systems Constitutional: Denies: chills, fever. EENTM: Denies: visual changes. Cardiovascular: Denies: chest pain, palpitations, syncope. Respiratory: Denies: cough, short of breath. Gastrointestinal: Denies: abdominal pain, nausea, vomiting. Genitourinary: Denies: dysuria. Objective Last 24 Hrs of Vital Signs/I&O Vital Signs Date Time Temp Pulse Resp B/P B/P Pulse O2 O2 Flow FiO2 Mean Ox Delivery Rate 12/23 0636 98.2 54 20 118/70 99 12/22 2350 97.6 57 18 142/76 96 Room Air 12/22 2124 58 / 1430 98.1 53 20 128/82 99 Room Air 12/22 1043 84 160/88 12/22 1043 84 160/88 Intake & Output 12/23 1600 12/23 0800 12/23 0000 Intake Total 340 Output Total Balance 340 Intake, Oral 340 Number 1 Bowel Movements Patient 159 lb Weight Physical Exam General Appearance: Alert, Oriented X3, Cooperative, No Acute Distress HEENT: PERRLA Neck: No JVD Cardiovascular: Regular Rate, Normal S1, Normal S2, DIASTOLIC MURMUR Lungs: Normal Air Movement Abdomen: Normal Bowel Sounds, Soft, No Tenderness Neurological: Normal Speech, Strength at 5/5 X4 Ext, Normal Tone, Sensation Intact Extremities: No Edema Vascular: Normal Pulses Current Medications: Current Medications Sig/Pauline Start time Last Medication Dose Route Stop Time Status Admin Aspirin 81 MG DAILY 12/22 1000 AC 12/22 PO 1043 Atorvastatin Calcium 80 MG 1700 12/22 1700 AC 12/22 PO 1831 Heparin Sodium 5,000 UNIT Q8 12/22 0600 AC 12/23 (Porcine) SC 0519 Metoprolol Tartrate 25 MG BID 12/22 1000 AC 12/22 PO 2124 Patient Medication 1 ED ONE ONE 12/22 1445 DC 12/22 Teaching ED 12/22 1446 1833 Last 24 Hrs of Labs/Mics: Laboratory Tests 12/23/17 0705: Sodium Pending, Potassium Pending, Chloride Pending, Carbon Dioxide Pending, Anion Gap Pending, BUN Pending, Creatinine Pending, BUN/Creatinine Ratio Pending , CBC w Diff NO MAN DIFF REQ, RBC 4.77, MCV 91.4, MCH 30.3, MCHC 33.2, RDW 13.4, MPV 8.3, Gran % 60.1, Lymphocytes % 24.0, Monocytes % 8.3, Eosinophils % 7.1 H, Basophils % 0.5, Absolute Granulocytes 5.0, Absolute Lymphocytes 2.0, Absolute Monocytes 0.7 H, Absolute Eosinophils 0.6, Absolute Basophils 0 12/22/17 1025: Troponin I 0.11 *H Ric Drew 12/23/17 1104: Attending Addendum Attending Brief Note 77 o/m with chest pain in high risk patient with elevated cardiac enzymes. No fever, headaches. Patient started on asa/statin/b clinton/ nitrates prn and consulted cardiology. Plan for cardiac cath today as per cardiology. RISS and titrate insulin as needed. Gi/dvt prophyalxis full code. Patient is medically stable for transfer to cath facility.
[2017-12-23 08:13] LABS: ABSOLUTE BASOPHIL COUNT 0 /CUMM (0.0-0.2); ABSOLUTE EOSINOPHIL COUNT 0.6 /CUMM (0.0-0.7); ABSOLUTE MONOCYTE COUNT 0.7 /CUMM (0.10-0.60); BASOPHIL % 0.5 % (0.0-2.0); EOSINOPHIL % 7.1 % (0-5); GRANULOCYTE % 60.1 % (42.2-75.2); HEMATOCRIT 43.6 % (42-52); MEAN CORPUSCULAR HGB 30.3 PG (27.0-31.0); MEAN CORPUSCULAR HGB CONC 33.2 G/DL (33.0-37.0); MEAN CORPUSCULAR VOLUME 91.4 FL (80.0-94.0); MEAN PLATELET VOLUME 8.3 FL (7.4-10.4); PLATELET COUNT 316 /CUMM (130-400); RBC DISTRIBUTION WIDTH 13.4 % (11.5-14.5); RED BLOOD CELL CT 4.77 /CUMM (4.70-6.10); WHITE BLOOD CELL COUNT 8.4 /CUMM (4.8-10.8)
[2017-12-23 10:12] VITALS: BP 127/70
== END 2017-12-23 13:00 | disposition short-term general hospital (02) ==
LOC: ERH 21:50 → 1NO 23:13 → ERHI 23:13 → ENRESERV 12-22 → 1NO 12-22 02:07 → ENPENDDIS 12-23 11:53 → 1NO 12-23 13:00
PROVIDERS: Emergency Medicine; Student in an Organized Health Care Education/Training Program
DX: R07.9 Chest pain, unspecified (principal); I10 Essential (primary) hypertension; E03.9 Hypothyroidism, unspecified; E78.5 Hyperlipidemia, unspecified; M35.3 Polymyalgia rheumatica; K21.9 Gastro-esophageal reflux disease without esophagitis; M54.9 Dorsalgia, unspecified; I77.819 Aortic ectasia, unspecified site; Z91.19 Patient's noncompliance with other medical treatment and regimen
CPT/HCPCS: 36592; 71045; 82436; 93005; 93010; 93306; 96372; 99291; G0378; J1644; J3490